=== PATIENT | male | born 1980 | race Caucasian/White ===

== ENCOUNTER 2017-10-06 01:42 | Emergency (ER) | payer OTHER, MEDICAID, SELFPAY ==
[2017-10-06] VITALS (8 sets, daily range): BP systolic 107–123; BP diastolic 65–75; PULSE 76–101; RESP 13–18; TEMP 35.8–36.6; O2SAT 95–100
--- NOTE | 2017-10-06 01:56 | ED.AMS ---
HPI - Altered Mental Status General Chief Complaint: Toxicology Problem Stated Complaint: Over Dose Time Seen by Provider: 10/06/17 01:53 Source: EMS Mode of arrival: EMS Limitations: altered mental status History of Present Illness HPI narrative: Unable to obtain history from patient secondary to altered mental status. It was reported by EMS that he was ?well-known ?to be a drug user on [place]. Was reported that earlier this evening the patient's girlfriend called 911 because the patient used heroin and benzodiazepines and then became unresponsive. It was reported that at some point he did regain consciousness however when EMS arrived to his residence he was unconscious. No reports of the patient being violent however he was placed in restraints. Patient has been given by report 0.2 mg of Narcan. EMS arrived to [facility] by [employer]. Arrived to us by [facility]. No further Narcan has been given after the 1st dose. [facility] report that the patient has not been violent for them. Has been arousable to stimulation. Maintaining airway. Has a right-sided EJ in place for IV access. Related Data Home Medications Medication Instructions Recorded Confirmed [SUBOXONE] 12 mg PO Q DAY #0 02/05/12 Allergies Allergy/AdvReac Type Severity Reaction Status Date / Time No Known Drug Allergies Allergy Verified 10/06/17 02:15 Review of Systems Review of Systems unobtainable due to mental status Exam Initial Vital Signs Initial Vital Signs: Vital Signs Temperature 96.5 F L 10/06/17 02:00 Pulse Rate 88 10/06/17 02:00 Respiratory Rate 13 10/06/17 02:00 Blood Pressure 123/75 H 10/06/17 02:00 Pulse Oximetry 98 10/06/17 02:00 Const General: comfortable, well developed and No acute distress [facility] Head: normal to inspection and normocephalic Nose: external nose normal Mouth: oral mucosae normal Eyes Other: Pupils 2 mm bilaterally reactive. Resp Effort & Inspection: normal respiratory effort Auscultation: clear to auscultation bilaterally Cardio Rate: regular rate Rhythm: regular rhythm Pulses: radial pulses present GI Inspection: non-distended Palpation: soft and No firm Back/Spine/Pelvis Cervical Spine: No step off deformity Other: No step-off deformities of the thoracic lumbar spine Skin Lesions: no lesions Rashes: no rashes Neuro Other: Chin tuck arousable to sternal rub. Was able to tell me that he was not in any pain. Moved all 4 extremities spontaneously and to command. Would not answer any other questions. Extrem Other: Move all 4 extremities. No gross deformities. Psych Appearance: grossly normal and well kempt Scores GCS Corey coma scale eye opening: None Corey coma scale verbal response: Orientated Marty coma scale motor response: Obey commands Corey coma scale total score: 12 Course Orders Ordered: ED Orders 10/06/17 01:54 Acetaminophen Stat Complete Blood Count AUTO DIFF Stat Comprehensive Metabolic Panel Stat Creatine Kinase Stat Ethanol (ETOH) Stat Salicylate Stat Sodium Chloride (Normal Saline 0.9%) 1,000 mls @ 100 mls/hr IV CONT CLAU Last Infusion: 10/06/17 05:16 Dose: 100 mls/hr Admin: 10/06/17 02:14 Dose: 100 mls/hr Vital Signs - 8 hr 10/06/17 02:00 10/06/17 02:07 10/06/17 02:16 Temperature 96.5 F L 96.5 F L Pulse Rate 88 89 89 Respiratory Rate 13 14 14 Blood Pressure 123/75 H 123/75 H Blood Pressure [Left Arm] 112/70 Pulse Oximetry 98 96 96 10/06/17 02:45 10/06/17 04:37 10/06/17 05:48 Temperature Pulse Rate 79 76 77 Respiratory Rate 16 16 Blood Pressure Blood Pressure [Left Arm] 112/65 110/65 107/68 Pulse Oximetry 95 98 97 MDM - Altered Mental Status Lab Data Attestation: I reviewed the patient's lab results. Result diagrams: 10/06/17 01:54 10/06/17 01:54 Lab Results 10/06/17 10/06/17 10/06/17 Range/Units 01:54 01:54 01:54 WBC 6.9 (4.5-11.0) X10^3/uL RBC 4.62 (4.5-5.9) X10^6/uL Hgb 13.6 (13.5-17.5) g/dL Hct 39.0 L (41-53) % MCV 84.4 (80-100) fL MCH 29.5 (26-34) PG MCHC 34.9 (30-36) % RDW 13.3 (11.6-14.8) % Plt Count 208 (150-400) X10^3/uL Neut % (Auto) 76.1 H (50-75) % Lymph % (Auto) 16.2 L (25-40) % [place] % (Auto) 6.0 (3-14) % Eos % (Auto) 1.1 L (2-4) % Baso % (Auto) 0.6 (0-2) % Neut # (Auto) 5300 (5531-1684) /uL Sodium 139 (137-145) mmol/L Potassium 4.2 (3.4-5.1) mmol/L Chloride 101 (98-107) mmol/L Carbon Dioxide 31 (22-32) mmol/L BUN 18 (9-20) mg/dL Creatinine 0.90 (0.66-1.25) mg/dL Estimated GFR > 60.0 (>60) mL/min BUN/Creatinine Ratio 20.0 (6-22) Glucose 89 (70-100) mg/dL Calcium 8.5 (8.4-10.2) mg/dL Total Bilirubin 0.6 (0.2-1.3) mg/dL AST 28 (17-59) IU/L ALT 26 (21-72) IU/L Alkaline Phosphatase 77 (38-126) U/L Total Creatine Kinase 87 (55-170) U/L Total Protein 7.2 (6.3-8.2) g/dL Albumin 3.9 (3.5-5.0) g/dL Globulin 3.3 (1.7-4.1) g/dL Albumin/Globulin Ratio 1.2 (1.0-2.8) Salicylates < 1.0 (<20) mg/dL Acetaminophen < 10 L (10-30) ug/mL Ethyl Alcohol < 10 mg/dL MDM Narrative Medical decision making narrative: Patient has remained stable while here in the emergency department. He has been unrestrained here. He has remained arousable with stimulation. Vital signs unremarkable. Labs unremarkable. We have been in contact with his girlfriend who states that she can come to the emergency department to pick him up. [place] be on the [id number] boat from [place]. Care turned over to day provider at change of shift for re-evaluation and disposition once medically cleared. Discharge Plan Departure Patient Disposition: Home, Self-Care Clinical Impression: Drug abuse, Altered mental status Instructions: DI for Drug Abuse and Drug Addiction Activity Restrictions/Additional Instructions: No driving for the next 24 hr or in the future if you decide to take intoxicating substances. Highly recommend that you seek help for your substance abuse. Contact your primary care doctor for a follow-up. You can return to the emergency department at any point for new or worsening symptoms. Prescriptions: No Action [SUBOXONE] 12 mg PO Q DAY Qty: 0 RF: 0
[2017-10-06 02:08] LABS: Add Manual Diff / Slide Review NO; Basophils Percent Auto 0.6 % (0-2); Eosinophils Percent Auto 1.1 % (2-4); Hemoglobin 13.6 g/dL (13.5-17.5); Lymphocytes Percent Auto 16.2 % (25-40); Mean Corpuscular HGB Conc 34.9 % (30-36); Mean Corpuscular Hemoglobin 29.5 PG (26-34); Mean Corpuscular Volume 84.4 fL (80-100); Neutrophils Absolute Auto 5300 /uL (3000-5900); Neutrophils Percent Auto 76.1 % (50-75); Platelet Count 208 X10^3/uL (150-400); Red Blood Cell Count 4.62 X10^6/uL (4.5-5.9); Red Cell Distribution Width 13.3 % (11.6-14.8); White Blood Cell Count 6.9 X10^3/uL (4.5-11.0)
[2017-10-06] MEDS: SODIUM CHLORIDE 0.9% 1,000 ML 100 ML IV (02:14)
[2017-10-06 02:20] LABS: Alanine Aminotransferase 26 IU/L (21-72); Albumin 3.9 g/dL (3.5-5.0); Albumin Globulin Ratio 1.2 (1.0-2.8); Alkaline Phosphatase 77 U/L (38-126); Aspartate Aminotransferase 28 IU/L (17-59); Bilirubin Total 0.6 mg/dL (0.2-1.3); Blood Urea Nitrogen 18 mg/dL (9-20); Calcium 8.5 mg/dL (8.4-10.2); Carbon Dioxide 31 mmol/L (22-32); Chloride 101 mmol/L (98-107); Creatine Kinase 87 U/L (55-170); Estimated Glomerular Filt Rate > 60.0 mL/min (>60); Ethanol (ETOH) < 10 mg/dL; Globulin 3.3 g/dL (1.7-4.1); Glucose 89 mg/dL (70-100); HEMOLYSIS < 15 (0-50); Potassium 4.2 mmol/L (3.4-5.1); Sodium 139 mmol/L (137-145); Total Protein 7.2 g/dL (6.3-8.2)
[2017-10-06 02:28] LABS: Acetaminophen < 10 ug/mL (10-30); Salicylate < 1.0 mg/dL (<20)
--- NOTE | 2017-10-06 05:19 | PC.NURSE ---
His iv fluids were stopped after gave verbal orders to do so.
--- NOTE | 2017-10-06 06:39 | PC.NURSE ---
His external jugular cath was removed patent and intact.No bleeding at site,dressing to site.He is alert and co-operative.
== END 2017-10-06 09:28 | disposition home or self-care (01) ==
PROVIDERS: Emergency Medicine; Emergency Provider Emergency Medicine; PCP Family Medicine
DX: F19.10 Other psychoactive substance abuse, uncomplicated (principal); R41.82 Altered mental status, unspecified
CPT/HCPCS: 36415; 80053; 80320; 80329; 82550; 85025; 96360; 96361; 99284; 99285; G0480

== ENCOUNTER 2018-01-13 10:41 | Emergency (ER) | payer OTHER, MEDICAID, SELFPAY ==
[2018-01-13 10:53] VITALS: BP 126/88; PULSE 96; RESP 14; TEMP 37; O2SAT 100; BMI 23.7
--- NOTE | 2018-01-13 12:07 | ED_ITS ---
HPI - Skin/Abscess/Foreign Bdy <PEGGY Morton - Last Filed: 01/13/18 22:22> General Chief complaint: Skin/Abscess/Foreign Body Stated complaint: abcess in right arm Time Seen by Provider: 01/13/18 12:06 Source: patient Mode of arrival: ambulatory Limitations: no limitations History of Present Illness HPI narrative: 37-year-old male with a history of polysubstance IV drug user that is a former tobacco smoker here for complaint of redness and swelling to his right hand over the past 2-3 days. He states that he did inject heroin and meth into the right hand a few days ago. He states he did use a clean needle. He reports he is now having purulent drainage from the at the swelling area of the right hand. He denies any fevers. He denies any trauma to the right hand. He also reports having increased pain into the right hand due to the swelling and infection he denies any other concerns or complaints. MD complaint: abscess/boil Related Data Home Medications Medication Instructions Recorded Confirmed buprenorphine-naloxone [Suboxone] 16 mg SUBLINGUAL DAILY 01/13/18 01/13/18 Previous Rx's Medication Instructions Recorded clindamycin HCl 300 mg PO QID #28 cap 01/13/18 Allergies Allergy/AdvReac Type Severity Reaction Status Date / Time No Known Drug Allergies Allergy Verified 01/13/18 10:56 Review of Systems <PEGGY Morton - Last Filed: 01/13/18 22:22> Constitutional Denies chills, Denies fever(s), Denies lethargy and Denies weakness Eyes Denies change in vision, Denies eye discharge, Denies irritation and Denies loss of vision ENT Ears, Nose, Mouth, and Throat: Denies change in voice, Denies neck pain and Denies sore throat Cardiovascular Denies chest pain, Denies irregular heart rhythm, Denies lightheadedness, Denies palpitations, Denies dyspnea, Denies dyspnea on exertion and Denies orthopnea Respiratory Denies cough, Denies dyspnea, Denies dyspnea on exertion and Denies wheezing Gastrointestinal Gastrointestinal: Denies abdominal pain, Denies change in bowel habits, Denies diarrhea, Denies nausea and Denies vomiting Genitourinary Denies hematuria, Denies flank pain, Denies urinary incontinence and Denies urinary urgency Musculoskeletal Denies neck pain Comments: Redness swelling and purulent drainage from right hand Integumentary/Breasts Denies pruritus, Denies erythema, Denies rash and Denies wounds Neurologic Denies confusion, Denies loss of vision and Denies weakness Psychiatric Denies anxiety, Denies confusion, Denies depression, Denies homicidal ideation and Denies suicidal ideation Endocrine Denies palpitations Allergic/Immunologic Denies wheezing Exam <PEGGY Morton - Last Filed: 01/13/18 22:22> Initial Vital Signs Initial Vital Signs: Vital Signs Temperature 98.6 F 01/13/18 10:53 Pulse Rate 96 H 01/13/18 10:53 Respiratory Rate 14 01/13/18 10:53 Blood Pressure 126/88 01/13/18 10:53 Pulse Oximetry 100 01/13/18 10:53 Const General: cooperative and well developed Nutritional Appearance: well nourished Orientation: alert, awake, oriented x3 and not confused HENMT Mouth: oral mucosae normal and mucous membranes abnormal Eyes Conjunctivae: conjunctivae normal Sclera: sclerae normal Pupils: PERRL EOM: EOM intact bilaterally Resp Effort & Inspection: normal respiratory effort, able to speak in complete sentences, no respiratory distress and no use of accessory muscles Auscultation: clear to auscultation bilaterally, no rales, no rhonchi and no wheezes Cardio Rate: regular rate Rhythm: regular rhythm Heart Sounds: no click, no gallops, no murmurs and no rubs Pulses: normal peripheral pulses Neuro General: alert, oriented x3, gait normal and no focal motor deficits Speech: speech normal Extrem Other: Redness and swelling to the bulk of the right hand. 3-4 cm area of fluctuance and induration draining purulent drainage. Distal sensation is intact. Distal range of motion is intact. Distal cap refill less than 2 sec. <Chris Pineda DO - Last Filed: 01/14/18 00:18> Initial Vital Signs Initial Vital Signs: Vital Signs Temperature 98.6 F 01/13/18 10:53 Pulse Rate 96 H 01/13/18 10:53 Respiratory Rate 14 01/13/18 10:53 Blood Pressure 126/88 01/13/18 10:53 Pulse Oximetry 100 01/13/18 10:53 Procedures <PEGGY Morton - Last Filed: 01/13/18 22:22> Abscess I/D Site: hand Side (if applicable): right Local Anesthetic: lidocaine 1% Amount of anesthesia used (mL): 3 Technique: incised with #11 blade Amount of fluid expressed (mL): 20 Irrigation: Yes Packing used?: none Complications: pain Course <PEGGY Morton - Last Filed: 01/13/18 22:22> Orders Ordered: Discontinued Medications Vancomycin HCl 1,500 mg/ (Sodium Chloride) 500 mls @ 333.333 mls/hr IV NOW ONE Stop: 01/13/18 12:34 Last Infusion: 01/13/18 15:05 Dose: 0 mls/hr Admin: 01/13/18 13:14 Dose: 333.333 mls/hr Ibuprofen (Advil) 400 mg PO NOW ONE Stop: 01/13/18 12:38 Last Admin: 01/13/18 12:52 Dose: 400 mg Vital Signs - 8 hr 01/13/18 10:53 Temperature 98.6 F Pulse Rate 96 H Respiratory Rate 14 Blood Pressure 126/88 Pulse Oximetry 100 <Chris Pineda DO - Last Filed: 01/14/18 00:18> Orders Ordered: Discontinued Medications Vancomycin HCl 1,500 mg/ (Sodium Chloride) 500 mls @ 333.333 mls/hr IV NOW ONE Stop: 01/13/18 12:34 Last Infusion: 01/13/18 15:05 Dose: 0 mls/hr Admin: 01/13/18 13:14 Dose: 333.333 mls/hr Ibuprofen (Advil) 400 mg PO NOW ONE Stop: 01/13/18 12:38 Last Admin: 01/13/18 12:52 Dose: 400 mg Vital Signs - 8 hr 01/13/18 10:53 Temperature 98.6 F Pulse Rate 96 H Respiratory Rate 14 Blood Pressure 126/88 Pulse Oximetry 100 MDM - Skin/Abscess/Foreign Bdy <PEGGY Morton - Last Filed: 01/13/18 22:22> Lab Data Result diagrams: 01/13/18 13:05 01/13/18 13:05 Lab Results 01/13/18 01/13/18 Range/Units 13:05 13:05 WBC 8.4 (4.5-11.0) X10^3/uL RBC 4.81 (4.5-5.9) X10^6/uL Hgb 13.8 (13.5-17.5) g/dL Hct 40.5 L (41-53) % MCV 84.3 (80-100) fL MCH 28.6 (26-34) PG MCHC 34.0 (30-36) % RDW 13.0 (11.6-14.8) % Plt Count 312 (150-400) X10^3/uL Neut % (Auto) 62.2 (50-75) % Lymph % (Auto) 28.4 (25-40) % [place] % (Auto) 6.5 (3-14) % Eos % (Auto) 1.9 L (2-4) % Baso % (Auto) 1.0 (0-2) % Neut # (Auto) 5200 (5696-4312) /uL Sodium 141 (137-145) mmol/L Potassium 4.4 (3.4-5.1) mmol/L Chloride 99 (98-107) mmol/L Carbon Dioxide 32 (22-32) mmol/L BUN 12 (9-20) mg/dL Creatinine 0.90 (0.66-1.25) mg/dL Estimated GFR > 60.0 (>60) mL/min BUN/Creatinine Ratio 13.3 (6-22) Glucose 115 H (70-100) mg/dL Calcium 9.1 (8.4-10.2) mg/dL Total Bilirubin 0.4 (0.2-1.3) mg/dL AST 20 (17-59) IU/L ALT 23 (21-72) IU/L Alkaline Phosphatase 97 (38-126) U/L Total Protein 8.2 (6.3-8.2) g/dL Albumin 4.5 (3.5-5.0) g/dL Globulin 3.7 (1.7-4.1) g/dL Albumin/Globulin Ratio 1.2 (1.0-2.8) Imaging Data Right hand : Radiologist's impression: [address] [address] XRay Report Signed Patient: Royer Brower#: [id number] : 1980Acct:[id number] Age/Sex: 37 / MDate of Service: 01/13/18 Loc: ED Accession Number: [id number] Procedure: XR hand RT min 3V Ordering Provider: Donn Bonilla PROCEDURE: XR HAND RT MIN 3V INDICATIONS: Abscess to right hand after IV drug use to hand TECHNIQUE: 3 views of the hand(s) acquired. COMPARISON: None. FINDINGS: Bones: No fractures or dislocations. Carpal bones are normally aligned. No suspicious bony lesions. Soft tissues: Soft tissue swelling is seen, particularly along the radial aspect of the hand. A mild amount of soft tissue gas is seen. IMPRESSION: Soft tissue swelling is seen, without an acute bony abnormality identified. Mild soft tissue gas can be seen. Dictated by: Jose Medrano M.D. on 01/13/2018 at 12:54 Approved by: Jose Medrano M.D. on 01/13/2018 at 12:55 [facility] Narrative Medical decision making narrative: X-ray the right hand was obtained and was negative for any bony involvement. I and D to abscess to the right hand was completed with good amount of purulent drainage expressed. Wound culture was obtained and is pending. Due to amount of swelling and redness to the right hand discussed admission with patient for IV antibiotics. patient states would rather not be admitted. He was given a dose of vancomycin in the emergency room. He is placed on clindamycin orally. He is instructed to return tomorrow for further evaluation and possible repeat vancomycin. If any worsening symptoms return to the emergency room. [id number] ibuprofen as needed for any discomfort. <Chris Pineda, - Last Filed: 01/14/18 00:18> Lab Data Lab Results 01/13/18 01/13/18 Range/Units 13:05 13:05 WBC 8.4 (4.5-11.0) X10^3/uL RBC 4.81 (4.5-5.9) X10^6/uL Hgb 13.8 (13.5-17.5) g/dL Hct 40.5 L (41-53) % MCV 84.3 (80-100) fL MCH 28.6 (26-34) PG MCHC 34.0 (30-36) % RDW 13.0 (11.6-14.8) % Plt Count 312 (150-400) X10^3/uL Neut % (Auto) 62.2 (50-75) % Lymph % (Auto) 28.4 (25-40) % [place] % (Auto) 6.5 (3-14) % Eos % (Auto) 1.9 L (2-4) % Baso % (Auto) 1.0 (0-2) % Neut # (Auto) 5200 (3291-8082) /uL Sodium 141 (137-145) mmol/L Potassium 4.4 (3.4-5.1) mmol/L Chloride 99 (98-107) mmol/L Carbon Dioxide 32 (22-32) mmol/L BUN 12 (9-20) mg/dL Creatinine 0.90 (0.66-1.25) mg/dL Estimated GFR > 60.0 (>60) mL/min BUN/Creatinine Ratio 13.3 (6-22) Glucose 115 H (70-100) mg/dL Calcium 9.1 (8.4-10.2) mg/dL Total Bilirubin 0.4 (0.2-1.3) mg/dL AST 20 (17-59) IU/L ALT 23 (21-72) IU/L Alkaline Phosphatase 97 (38-126) U/L Total Protein 8.2 (6.3-8.2) g/dL Albumin 4.5 (3.5-5.0) g/dL Globulin 3.7 (1.7-4.1) g/dL Albumin/Globulin Ratio 1.2 (1.0-2.8) Discharge Plan Departure Patient Disposition: Home Clinical Impression: Abscess of hand, right Discharge Date/Time: 01/13/18 15:14 Interventions: ED Discharge Assessment Last Done: 01/13/18 15:12 Instructions: DI for Incision and Drainage of a Skin Abscess Activity Restrictions/Additional Instructions: Abscess to the right hand was incised and drained today to remove the purulent material. Your given IV antibiotics in the emergency room and are placed on oral antibiotics fill prescription and take as directed. Keep wound area clean and dry and dressing intact. Do not use heroin and Suboxone at the same time as this can be dangerous. Return to the emergency room tomorrow for re- evaluation. Use [id number] ibuprofen as needed for any discomfort. For any worsening symptoms return to the emergency room. Prescriptions: New clindamycin HCl 300 mg capsule 300 mg PO QID Qty: 28 RF: 0 No Action buprenorphine-naloxone [Suboxone] 8-2 mg film 16 mg Sublingual DAILY RF: 0 Referrals: Armando Pacheco MD [Primary Care Provider] - <Chris Pineda DO - Last Filed: 01/14/18 00:18> Cosign ED Attending Cosignature Attestation: I was immediately available in the department for consultation. Documentation has been reviewed. I agree with assessment and plan.
--- NOTE | 2018-01-13 12:23 | PC.NURSE ---
siginifcant swelling noted to right hand. Small opening with rhodes puss. Denies fevers or chills. Reports IV drug use couple days ago, attempted to drain abscess. Difficulty making a fist.
[2018-01-13] MEDS: IBUPROFEN 400 MG TABLET PO (12:52)
[2018-01-13] MEDS: VANCOMYCIN 1,500 MG in SODIUM CHLORIDE 0.9% 500 ML 333.333 ML IV (13:14)
[2018-01-13 13:25] LABS: Add Manual Diff / Slide Review NO; Eosinophils Percent Auto 1.9 % (2-4); Hematocrit 40.5 % (41-53); Hemoglobin 13.8 g/dL (13.5-17.5); Lymphocytes Percent Auto 28.4 % (25-40); Mean Corpuscular Hemoglobin 28.6 PG (26-34); Mean Corpuscular Volume 84.3 fL (80-100); Monocytes Percent Auto 6.5 % (3-14); Neutrophils Absolute Auto 5200 /uL (3000-5900); Neutrophils Percent Auto 62.2 % (50-75); Platelet Count 312 X10^3/uL (150-400); Red Blood Cell Count 4.81 X10^6/uL (4.5-5.9); White Blood Cell Count 8.4 X10^3/uL (4.5-11.0)
--- NOTE | 2018-01-13 13:38 | DI.RAD.S_ITS ---
PROCEDURE: XR HAND RT MIN 3V INDICATIONS: Abscess to right hand after IV drug use to hand TECHNIQUE: 3 views of the hand(s) acquired. COMPARISON: None. FINDINGS: Bones: No fractures or dislocations. Carpal bones are normally aligned. No suspicious bony lesions. Soft tissues: Soft tissue swelling is seen, particularly along the radial aspect of the hand. A mild amount of soft tissue gas is seen. IMPRESSION: Soft tissue swelling is seen, without an acute bony abnormality identified. Mild soft tissue gas can be seen. Dictated by: Jose Medrano M.D. on 01/13/2018 at 12:54 Approved by: Jose Medrano M.D. on 01/13/2018 at 12:55
[2018-01-13 13:44] LABS: Alanine Aminotransferase 23 IU/L (21-72); Albumin 4.5 g/dL (3.5-5.0); Albumin Globulin Ratio 1.2 (1.0-2.8); Alkaline Phosphatase 97 U/L (38-126); Aspartate Aminotransferase 20 IU/L (17-59); BUN Creatinine Ratio 13.3 (6-22); Bilirubin Total 0.4 mg/dL (0.2-1.3); Blood Urea Nitrogen 12 mg/dL (9-20); Calcium 9.1 mg/dL (8.4-10.2); Carbon Dioxide 32 mmol/L (22-32); Chloride 99 mmol/L (98-107); Estimated Glomerular Filt Rate > 60.0 mL/min (>60); Globulin 3.7 g/dL (1.7-4.1); Glucose 115 mg/dL (70-100); HEMOLYSIS < 15 (0-50); Potassium 4.4 mmol/L (3.4-5.1); Sodium 141 mmol/L (137-145); Total Protein 8.2 g/dL (6.3-8.2)
[2018-01-13 14:12] VITALS: BP 131/68; PULSE 87; RESP 16; O2SAT 100
== END 2018-01-13 15:14 | disposition home or self-care (01) ==
PROVIDERS: Emergency Provider Nurse Practitioner Family; PCP Family Medicine
DX: L02.511 Cutaneous abscess of right hand (principal)
CPT/HCPCS: 10060; 73130; 80053; 85025; 87070; 87077; 87147; 87186; 87205; 96365; 96366; 99283; 99284